=== PATIENT | male | born 1990 | race Caucasian/White ===

== ENCOUNTER 2022-04-03 21:42 | Emergency (ER) | payer BC, SELFPAY ==
[2022-04-03 22:12] VITALS: BP 139/82; PULSE 109; RESP 14; O2SAT 100; BMI 19.6
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
[2022-04-04] MEDS: CYCLOBENZAPRINE 10 MG PREPACK 1 BOTTLE MISC (00:08)
[2022-04-04 00:15] VITALS: BP 144/83; PULSE 89; RESP 18; O2SAT 99
== END 2022-04-04 00:15 | disposition home or self-care (01) ==
PROVIDERS: Emergency Provider Emergency Medicine
DX: S29.9XXA Unspecified injury of thorax, initial encounter (principal); S27.321A Contusion of lung, unilateral, initial encounter; V89.2XXA Person injured in unspecified motor-vehicle accident, traffic, initial encounter
CPT/HCPCS: 71046; 99283